=== PATIENT | male | born 1990 | race Caucasian/White ===

== ENCOUNTER → 2018-04-29 | Outpatient (CLI) | payer OTHER ==
--- NOTE | 2018-04-29 08:56 | US ---
EXAMINATION TYPE: US prostate transrectal DATE OF EXAM: 04/29/2018 COMPARISON: NONE CLINICAL HISTORY: N41.0 Acute Prostatitis. Pain during ejaculation, prostatitis This examination was performed using the transrectal probe. EXAM MEASUREMENTS: Gland Size: 3.6 x 2.1 x 3.9cm Volume: 15.5ml Predicted PSA: 1.86 Actual PSA (if available):Not available at this time Mildly heterogeneous gland without any definite lesions seen at this time. IMPRESSION: No focal abnormality identified. Predicted PSA = volume x 0.12 ng/ml Calculated Volume = 0.5236 x L x W x H
== END | disposition home or self-care (01) ==
LOC: RADUSMAIN 07:59
PROVIDERS: ATTEND Internal Medicine
DX: N41.0 Acute prostatitis (principal)
CPT/HCPCS: 76872